=== PATIENT | female | born 2000 | race Caucasian/White ===

== ENCOUNTER 2018-10-01 14:00 | Emergency (ER) | payer OTHER ==
[2018-10-01] MEDS ORDERED: NS 1,000 ML IV ONE ×2 (15:24→16:26)
[2018-10-01] MEDS ORDERED: ONDANSETRON 4 MG/2 ML VIAL IVP ONE (15:24)
[2018-10-01 15:51] LABS: PLATELET COUNT 254 10^3/uL (150-400)
--- NOTE | 2018-10-01 16:20 | EDPHY ---
General - History Smoking Status: Never smoked Time Seen by Provider: 10/01/18 15:13 Narrative: The patient was evaluated and managed by the physician bacteriology research assistant. I have reviewed this chart and I agree with the findings and plan of care as documented , as indicated by my signature. I am the secondary supervising physician. ( Tameka Schultz) CLINICAL IMPRESSION: Viral gastroenteritis, conjunctivitis ASSESSMENT/PLAN: 18 yo female presents to the ER with a 7 hr hx of N/V/D beginning this morning associated with redness and discharge from the right eye. No reports of UTI symptoms, flank pain, discharge, STI risk, sore throat, fever/chills, travel , new meds or abx. VSS on arrival. Abdomen soft and without peritoneal findings. Patient received IV fluids and labs were reassuring. No electrolyte imbalance or metabolic disturbance. She is not . She appears to have a mild viral vs bacterial right eye conjunctivitis that was treated with rx drops. She was able to tolerate po's in the ER and will be discharged with outpatient supportive tx and PCP f/u. Warning signs for sooner ER return outlined in d/c. DIFFERENTIAL DX: [ Abdominal pain includes but not limited to urinary tract infection, pyelonephritis, infection, ectopic , salpingitis, TOA, ovarian torsion, ovarian cyst, endometriosis, uterine fibroids, acute appendicitis, acute diverticulitis, small-bowel obstruction, constipation] [ED PROCEDURES:] [See lab and/or imaging results below ] ED COURSE: Labs reviewed by myself. Leukocytosis of 15. No electrolyte abnormality 4:50 P.M.: Patient reassessed, feeling much better, taking sachin richard without difficulty. Abdomen remains soft without focal peritoneal findings. Reports feeling improved. Will plan to discharge home with Zofran and PCP follow-up. CHIEF COMPLAINT: [ Nausea, vomiting, diarrhea, possible pinkeye] HPI: 18-year-old female presents to the emergency department with "possible pink eye ". Patient also reports for this for 7 hr upon awakening this morning she was nauseous, vomited repeatedly and had several episodes of diarrhea. She has not had any vomiting or diarrhea in the last couple hours but continues to feel "drained". She also reports a mild sore throat and discharge from the right eye this morning. No UTI symptoms. She has an IUD and denies . No abnormal complaints and no risk for STD. She reports generalized abdominal cramping. No reports of bloody diarrhea. No recent travel outside the [place] No reported fever or chills. She has not taken anything for her symptoms. She is otherwise healthy PAST MEDICAL HISTORY: None reported [See nurse/triage notes for additional history if applicable ] Pertinent Past Surgical History: None reported Family History: Noncontributory Social History: Otherwise healthy REVIEW OF SYSTEMS: All other systems negative Constitutional: [No fever, no chills, positive for appetite change.] Eyes: [No discharge, vision change] ENT: [Positive for congestion, denies ear pain.] Cardiovascular: [No chest pain, no palpitations.] Respiratory: [No cough, no shortness of breath.] Gastrointestinal: Positive for abdominal pain and vomiting, diarrhea.] Genitourinary: [No hematuria, dysuria, flank pain, pelvic pain] Musculoskeletal: [No back pain, joint swelling, joint pain, myalgias.] Skin: [No rashes, color change.] Neurological: [No headache, dizziness, weakness.] PHYSICAL EXAM: General Appearance: [Alert, oriented, appropriate, cooperative, NAD, well hydrated, pale, appears dehydrated non-toxic appearing, VSS, no hypoxia.] HEENT: [TMs are clear bilaterally no perforation or FB, no injection, no evidence of serous or mucopurulent otitis. Oropharynx clear is no erythema or exudates, no tonsillar hypertrophy or asymmetry. Dentition without abnormality. ] Eyes: [PERRLA, no acute vision change, nystagmus, swelling, discharge, pain or photosensitivity. Conjunctiva erythematous on right greater than left, no purulent discharge from medial canthus] Neck: [Supple, nontender, no lymphadenopathy, no midline pain, FROM, no meningismus.] Respiratory: [There are no retractions, lungs are clear to auscultation.] Cardiac: [Regular rate and rhythm, no murmurs or gallops.] Gastrointestinal: [Abdomen is soft, nontender, bowel sounds normal, no masses/ hernia, no rigidity, guarding or focal peritoneal findings.] Neurological: [ Alert and oriented x 3, CN 2-12 grossly intact Skin: [Warm, dry, no rashes, no nodules on palpation.] MEDICAL DECISION MAKING: Patient was seen independently. Secondary supervising physician at time of evaluation was [Dr. Schultz ]. Diagnosis: gastroenteritis, conjunctivitis. New, requires workup Summary: [ See Assessment and Plan for summary of ED visit ] Clinical lab tests: [ ordered / reviewed]. Patient Progress: [Improved, stable for discharge ]. (Horacio Rodriguez) - Objective Vital Signs: Initial Vital Signs Temperature (C) 36.4 C 10/01/18 14:09 Heart Rate 93 10/01/18 14:09 Respiratory Rate 18 10/01/18 14:09 Blood Pressure 124/71 H 10/01/18 14:09 O2 Sat (%) 95 10/01/18 14:09 O2 Delivery Mode Room Air Allergies/Adverse Reactions: No Known Allergies Allergy (Unverified 10/01/18 14:09) Home Medications: Medication Instructions Recorded Ciprofloxacin HCl [Ciprofloxacin 0.5 each OT Q4 #1 droperette 10/01/18 Opth Drops] Ondansetron Odt [Zofran Odt] 4 mg PO Q4PRN PRN #7 tab 10/01/18 Laboratory Results: Laboratory Results 10/01/18 15:40 10/01/18 15:40 Medications Given: Discontinued Medications Sodium Chloride (Ns) 1,000 mls @ 0 mls/hr IV EDNOW ONE; Wide Open PRN Reason: Protocol Stop: 10/01/18 15:25 Last Admin: 10/01/18 15:40 Dose: 1,000 mls Sodium Chloride (Ns) 1,000 mls @ 0 mls/hr IV ONCE ONE PRN Reason: Wide Open Stop: 10/01/18 16:27 Last Admin: 10/01/18 16:26 Dose: 1,000 mls Ondansetron HCl (Zofran) 4 mg IVP EDNOW ONE Stop: 10/01/18 15:25 Last Admin: 10/01/18 15:40 Dose: 4 mg Departure - Departure Disposition: Home, Routine, Self-Care Clinical Impression: Gastroenteritis, Nausea & vomiting, Conjunctivitis Condition: Fair Instructions: Acute Nausea and Vomiting (ED) Additional Instructions: DISCHARGE INSTRUCTIONS FROM YOUR DOCTOR Thank you for visiting our emergency department today. You were treated by a physician bacteriology research assistant today and your case was reviewed with our ED Attending physician. Please keep in mind that discharge from the emergency department does not mean that there is nothing wrong - it simply means that we have not identified an emergency condition that requires further evaluation or treatment in the hospital. You should always plan to follow up with primary care for re- evaluation of your condition in the next 2-3 days. If you have been referred to a specialist, please call as soon as possible (today or tomorrow) to schedule your follow up appointment at the appropriate time. DIAGNOSTIC EVALUATION IN THE EMERGENCY DEPARTMENT INCLUDED LAB EVALUATION, CHEMISTRY PANEL, 2 L IV FLUID AND NAUSEA MEDICATION. YOU HAVE A MILD ELEVATION IN YOUR INFECTION FIGHTING COUNT BUT NOT SEVERE. NO ELECTROLYTE IMBALANCE. YOU ARE NOT . YOU RECEIVED 2 L OF IV FLUID WITH IMPROVEMENT IN HER SYMPTOMS. A PRESCRIPTION FOR ZOFRAN WAS GIVEN TO USE FOR NAUSEA. PLEASE STICK TO A LIQUID DIET FOR THE NEXT 1-2 DAYS AND GRADUALLY ADVANCE TO BLAND FOODS TOLERATED. FOLLOW UP WITH A PRIMARY CARE DOCTOR. RETURN TO THE EMERGENCY DEPARTMENT FOR SEVERE OR WORSENING ABDOMINAL PAIN, HIGH FEVERS, BLOODY DIARRHEA , INABILITY TO EAT OR DRINK, OR ANY OTHER CONCERN. People present with illnesses and injuries in different ways, and it is always possible that we have missed something. You may always return for re-evaluation if symptoms worsen or if they are not improving or if you develop new/different symptoms. Again, thank you for choosing our emergency department. We hope that you feel better. Referrals: NONE *PRIMARY CARE P,. [Primary Care Provider] - As per Instructions [facility] [Clinic] - As per Instructions Stand Alone Forms: School Excuse, Work Excuse Prescriptions: Ciprofloxacin HCl [Ciprofloxacin Opth Drops] 0.5 each OT Q4 #1 droperette Ondansetron Odt [Zofran Odt] 4 mg PO Q4PRN PRN #7 tab PRN Reason: Nausea/Vomiting, Can'T Take Po
[2018-10-01 17:22] VITALS: BP 121/74
== END 2018-10-01 17:22 | disposition home or self-care (01) ==
DX: K52.9 Noninfective gastroenteritis and colitis, unspecified (principal); R11.2 Nausea with vomiting, unspecified; H10.9 Unspecified conjunctivitis; E86.9 Volume depletion, unspecified
CPT/HCPCS: 96374; J2405